=== PATIENT | male | born 1970 | race Two or more races ===

== ENCOUNTER 2022-06-18 09:12 | Emergency (ER) | payer OTHER ==
[~2022-06-18] VITALS: Ht 177.8 cm; Wt 71.2 kg
== END 2022-06-18 12:23 | disposition home or self-care (01) ==
LOC: ER 09:12
DX: N45.1 Epididymitis (principal)

== ENCOUNTER 2023-05-06 18:13 | Emergency (ER) | payer OTHER ==
[~2023-05-06] VITALS: Ht 177.8 cm; Wt 76.2 kg
== END 2023-05-06 20:33 | disposition home or self-care (01) ==
LOC: ER 18:13
DX: J09.X2 Influenza due to identified novel influenza A virus with other respiratory manifestations (principal); Z20.822 Contact with and (suspected) exposure to COVID-19

== ENCOUNTER 2024-01-11 16:58 | Emergency (ER) | payer OTHER ==
[~2024-01-11] VITALS: Ht 177.8 cm; Wt 77.1 kg
[2024-01-11 19:15] LABS: HEMATOCRIT 42.9 % (39.0-48.0); HEMOGLOBIN 14.6 g/dL (13-16.00); MEAN CELL VOLUME 92.6 fL (80.0-100.00); MEAN CORPUSCULAR HEMOGLOBIN 31.6 pg (27.00-32.0); MEAN CORPUSCULAR HGB CONC 34.1 g/dl (32.0-36.0); PLATELET COUNT 307 K/uL (150-450); RED BLOOD COUNT 4.63 M/uL (4.00-6.00); RED CELL DISTRIBUTION WIDTH 13.9 % (11.5-14.5)
[2024-01-11 19:16] LABS: PH,URINE 6.5 (5.0-8.0); URINE APPEARANCE Clear; URINE BILIRRUBIN Negative (NEGATIVE); URINE BLOOD Small; URINE COLOR Yellow; URINE GLUCOSE Negative (NEGATIVE); URINE LEUKOCYTE Negative; URINE NITRATE Negative; URINE PROTEIN Negative (NEGATIVE); URINE UROBILINOGEN 0.2 E.U./dl
[2024-01-11 19:20] LABS: URINE BACTERIA 15.1 uL (0.0-1933); URINE RBC 18.1 uL (0.0-20.8)
[2024-01-11 19:38] LABS: CALCIUM 9.2 mg/dL (8.5-10.1); CREATININE SERUM 1.04 mg/dL (0.70-1.30); GFR 74.99; POTASSIUM 4.38 mEq/L (3.5-5.1)
[2024-01-11 19:40] LABS: URINE EPITHELIAL CELLS 0.1 uL (0.0-38.8); URINE WBC 1.3 uL (0.0-23.2)
== END 2024-01-11 21:58 | disposition home or self-care (01) ==
LOC: ER 16:59
PROVIDERS: General Practice
DX: M54.9 Dorsalgia, unspecified (principal); R31.9 Hematuria, unspecified

== ENCOUNTER 2025-01-27 14:35 | Emergency (ER) | payer OTHER ==
[~2025-01-27] VITALS: Ht 177.8 cm; Wt 74.8 kg
[2025-01-27] MEDS ORDERED: ORPHENADRINE CITRATE 30 MG/ML AMPUL ONE (18:43)
[2025-01-27] MEDS ORDERED: KETOROLAC TROMETHAMINE 60 MG VIAL IM ONE ×2 (18:43→18:45)
[2025-01-27] MEDS ORDERED: ORPHENADRINE CITRATE 30 MG/ML AMPUL IM ONE (18:45)
== END 2025-01-27 19:03 | disposition home or self-care (01) ==
LOC: ER 14:36
DX: G89.11 Acute pain due to trauma (principal); R51.9 Headache, unspecified; M54.2 Cervicalgia